=== PATIENT | male | born 1990 | race Caucasian/White ===

== ENCOUNTER 2018-09-11 22:02 | Emergency (ER) | payer MEDICAID ==
[~2018-09-11] VITALS: Ht 180.3 cm; Wt 86.0 kg
[2018-09-12] MEDS ORDERED: IBUPROFEN 800MG TABLET PO ONE (01:00)
[2018-09-12 02:48] VITALS: BP 145/84
== END 2018-09-12 02:52 | disposition home or self-care (01) ==
LOC: ER 22:02
DX: M54.5 Low back pain (principal); M54.2 Cervicalgia; S00.81XA Abrasion of other part of head, initial encounter; V49.49XA Driver injured in collision with other motor vehicles in traffic accident, initial encounter; Y93.89 Activity, other specified; Y92.410 Unspecified street and highway as the place of occurrence of the external cause
CPT/HCPCS: 72128; 72131; 99284